=== PATIENT | male | born 1945 | race Caucasian/White ===

== ENCOUNTER 2020-01-07 09:33 | Inpatient (IN) | payer MEDICARE ==
[~2020-01-07] VITALS: Ht 170.2 cm; Wt 84.1 kg
--- NOTE | ~2020-01-07 | HEMODYNAMI ---
PATIENT:CHASTITY BOYER MEDICAL RECORD: [id number] : 43 [facility] [id number] ADMISSION DATE: 01/07/20 Generatedon:01/11/202012:41 Patient name: CHASTITY BOYER Patient #: [id number] SSN: DO B: 1945 Date of study: 01/11/2020 Page: Of Hemodynamic Procedure Report Patient Data Patient Demographics Procedure consent was obtained First Name: CHASTITY Gender: Male Last Name: ROSALIND : 1945 [facility] Initial: J Age: 74 year(s) Patient #: [id number] Race: Unknown Additional ID: [id number] Contact details Address: [address] [place] [address] State: [place] City: [place] Zip code: [address] Past Medical History Allergies: No known allergies Admission Admission Data Admission Date: 01/07/2020 Admission Time: 10:51 Room #: D.2116 Lab Results Lab Result Date: 01/11/2020 Lab Result Time: 0:00 Biochemistry Name Units Result Min Max BUN mg/dl 14 --(--*-)-- 7 18 Creatinine mg/dl 0.8 --(-*--)-- 0.6 1.3 eGFR ml/min 90 --(*---)-- 90 120 NONAFRICAN CBC Name Units Result Min Max Hematocrit % 42.6 --(*---)-- 42 54 Hemoglobin g/dl 13.8 --(*---)-- 13.5 17.5 Procedure Procedure Types Cath Procedure Diagnostic Procedure Cardioversion External Procedure Description Procedure Date Procedure Date: 01/11/2020 Procedure Start Time: 12:31 Procedure End Time: 12:39 Procedure Staff Name Function Jamarcus Duarte MD Performing Physician Sammie Ponce RT Monitor Melvi Castro RN Nurse Star Hess RN Adobe Flex Developer Procedure Data Cath Procedure Fluoroscopy Diagnostic fluoroscopy Total fluoroscopy Time: 0 time: 0 min min Diagnostic fluoroscopy Total fluoroscopy dose: 0 dose: 0 mGy mGy Estimated blood loss: 0 ml Procedure Complications No complications Procedure Medications Medication Administration Route Dosage 0.9% NaCl I.V. 100 ml/hr Oxygen etCO2 Nasal cannula 2 l/min Refer to Anesthesia Notes for Sedation Medications Hemodynamics Rest HGB: 13.8 (g/dl) Heart Rate: 81 (bpm) Snapshots Pre Cath Intra NCS Post Cath Vital Signs Time Heart Resp SPO2 etCO2 NIBP (mmHg) Rhythm Pain Sedation Rate (ipm) (%) (mmHg) Status Level (bpm) 12:27:59 72 22 97 22.5 179/95(119) A-Fib 0 (11) 10(A) , No pain 12:31:05 83 13 97 24.7 117/72(84) A-Fib 0 (11) 5(A) , No pain 12:33:24 71 19 94 21.7 106/66(83) NSR 0 (11) 5(A) , No pain 12:36:33 72 16 94 18.7 102/65(83) NSR 0 (11) 5(A) , No pain 12:38:58 68 26 94 24.8 109/68(86) NSR 0 (11) 10(A) , No pain Medications Time Medication Route Dose Verified Delivered Reason Notes Effective ness by by 12:27:07 0.9% NaCl I.V. 100 Jamarcus Melvi used for ml/hr Gerald Castro major case detective 12:27:14 Oxygen etCO2 2 Jamarcus Melvi used for Nasal l/min Gerald Castro procedure cannula RN 12:27:21 Refer to Jamarcus Jamarcus for Anesthesia Gerald Duarte MD sedation Notes for Sedation Medications Procedure Log Time Note 12:04:18 Informed consent obtained and on chart 12:04:42 Procedure Status Cardioversion. 12:04:44 Star Hess RN sent for patient. Start room use. 12:04:44 Time tracking: Regular hours (M-F 7:00 - 5:00) 12:04:48 Plan of Care:Hemodynamics will remain stable., Cardiac rhythm will remain stable., Comfort level will be maintained., Respiratory function will remain adequate., Patient/ family verbilizes understanding of procedure., Procedure tolerated without complication., Recovers from procedure without complications.. 12:04:51 H&P Date Dictated: 01/11/2020 ER History on chart.. 12:04:58 Patient allergic to No known allergies 12:21:40 Patient arrived from [facility] to CCL 3. Patient remains on bed/stretcher for procedure. 12::42 Warm blankets applied, and dari hugger turned on for patient comfort. 12::42 Correct patient and procedure confirmed by team. 12::42 ECG and BP/O2 sat monitors applied to patient. 12::44 Pre-procedure instructions explained to patient. 12::44 Pre-op teaching completed and patient verbalized understanding. 12::45 Family unavailable. 12::46 Patient NPO since Midnight. 12:21:48 Is the patient allergic to Iodine/contrast media? No. 12::49 Is patient on blood thinner?Yes 12::52 ACC The patient was administered the following blood thiners within the last 24 hours: Eliquis 12:21:54 Patient diabetic? No. 12:21:56 Previous problem with sedation/anesthesia? No ? 12:22:01 Snore? Yes 12:22:02 Sleep apnea? No 12:22:05 Deviated septum? No 12:22:06 Opens mouth fully? Yes 12:22:07 Sticks out tongue? Yes 12:22:12 Airway obstruction? Yes COPD 12:22:18 Dentures? No ? 12:22:24 Patient pain scale 0/10 ?. 12:22:31 IV patent on arrival in left hand with 0.9% NaCl at [facility]. 12:24:36 Lab Result : BUN 14 mg/dl 12:24:36 Lab Result : Creatinine 0.8 mg/dl 12:24:36 Lab Result : eGFR NONAFRICAN 90 ml/min 12:24:36 Lab Result : Hemoglobin 13.8 g/dl 12:24:36 Lab Result : Hematocrit 42.6 % 12:24:49 Lab results completed and on chart. 12::56 Alarms reviewed by R. N. 12::57 Sharps counted by scrub and verified by R.N. 12::54 Vital chart was started 12:26:55 Baseline sample Acquired. 12:27:03 Rhythm: atrial fibrillation 12:27:04 Full Disclosure recording started 12:27:07 0.9% NaCl 100 ml/hr I.V. was administered by Melvi Matthew RN; used for procedure; Verbal order read back and verified. :14 Oxygen 2 l/min etCO2 Nasal cannula was administered by Melvi Castro RN; used for procedure; Verbal order read back and verified. : Jamarcus Duarte MD present and monitoring patient for TIVA. 12:: Refer to Anesthesia Notes for Sedation Medications was administered by Jamarcus Duarte MD; for sedation; Verbal order read back and verified. : --------ALL STOP TIME OUT------ : Final Timeout: patient, procedure, and site verified with staff and physician. All members of the team are in agreement. 12::19 Fire Safety Assessment: A--An alcohol-based skin anteseptic being used preoperatively., B--The operative or invasive procedure is being performed above the xiphoid process or in the oropharynx., C--Open oxygen or nitrous oxide is being used. 12::23 Physical assessment completed. ASA score P 3 - A patient with severe systemic disease as per Jamarcus Duarte MD. 12::25 1) 90+ Normal kidney functon but urine findings or structural abnormalities or genetic trait point to kidney disease. 12:29:28 Maximum allowable contrast dose (3.7 X eGFR X 0.75)250 ml. 12::32 Sedation plan: IV Moderate Sedation Medication:Versed, Fentanyl 12:29:54 Quick Combo opened to sterile field. 12:31:29 Procedure started. 12:31:39 ------Cardioversion------ 12::40 Quick combo pads placed on patients chest and back. 12::45 Defibrillator synced and charged to 200 Joules. 12:31:51 Shock delivered. 12:31:52 Patient cardioverted to sinus rhythm . 12:32:26 Procedure ended.(Physican Out) 12:33:59 Fluoroscopy time 00.00 minutes. 12:34:00 Flurop Dose total: 0 12:34:00 Fluoroscopy dose: 0 mGy 12:34:02 Dose Area Product 0 mGy/cm. 12:34:14 Post-procedure physical assessment completed. ASA score P 3 - A patient with severe systemic disease as per Jamarcus Duarte MD. :17 Post procedure rhythm: sinus rhythm 12:34:50 Estimated blood loss: 0 ml 12:34:52 Post procedure instruction explained to patient.Patient verbalizes understanding. 12:34:52 Patient needs reinforcement of post procedure teaching. 12:35:19 Procedure and supply charges have been captured, reviewed, submitted and are correct. 12:35:22 Procedure Complication : No complications 12:35:27 Operative report dictated upon procedure completion. 12:35:27 See physician's report for complete and final results. 12:35:29 Report given to [facility]. 12:35:33 Patient transfered to [facility] with Bed. 12:39:16 Vital chart was stopped 12:39:19 Procedure ended. 12:39:19 Full Disclosure recording stopped 12:39:28 End room use (Document Last) 12:40:06 End room use (Document Last) 12:40:47 End room use (Document Last) Device Usage Item Manufacture Quantity Catalog Hospital Part Current Minimal Lot# / Name Number Charge Number Stock Stock Seri al# Code [id number] Combo Signature Audit Latta Stage Time Signature Unsigned Intra-Procedure 01/11/2020 Sammie Ponce 12:40:06 PM RT(R) Intra-Procedure 01/11/2020 Melvi Castro 12:40:47 PM RN Intra-Procedure 01/11/2020 Jamarcus Duarte MD 12:41:[address] [facility] [address] [place] [address]
[~2020-01-07 09:33] MED LIST: ANORO ELLIPTA1 EACH INH; BETAPACE 120 M120 MG PO; CYCLOBENZAPRINE10 MG PO; ELIQUIS5 MG PO; HCTZ25 MG PO; HYDROCODON-ACE1 EA10 PO; LISINOPRIL10 MG PO; MUCINEX DM ER1 EAC1 PO; Nicoderm [PBKC] TRANSDERM; OMNICEF300 MG PO; PREDNISONE10 MG PO; PROMACTA75 MG PO; REQUIP3 MG PO; TESSALON PERLE100 MG PO; TIAZAC/CARDIZE240 M1 PO; TIAZAC/CARDIZEM CD PO
[2020-01-07] MEDS ORDERED: BETAPACE 80 MG80 MG PO (09:41)
[2020-01-07] MEDS ORDERED: CARDIZEM CD240 MG PO (09:42)
[2020-01-07] MEDS ORDERED: PROMACTA75 MG PO (09:42)
[2020-01-07] MEDS ORDERED: HYDROCODON-ACE1 EA10 PO (09:43)
--- NOTE | 2020-01-07 09:49 | NUR ---
FOOD TRAY ORDERED FOR PATIENT AT THIS TIME.
[2020-01-07 09:58] LABS: BASOPHILS 0.3 % (0-2); EOSINOPHILS 2.8 % (0-7); HEMATOCRIT 42.7 % (42.0-54.0); HEMOGLOBIN 14.3 g/dL (13.5-17.5); IMMATURE GRANULOCYTES 0.2 % (0-5); LYMPHOCYTES 7.1 % (15-50); MCH 30.4 pg (26.0-34.0); MCHC 33.5 g/dL (31.0-37.0); MCV 90.7 fL (80.0-100.0); MEAN PLATELET VOLUME 13.6 fL (7.4-10.4); MONOCYTES 4.7 % (2-11); NEUTROPHILS 84.9 % (40-80); RBC 4.71 10x6/uL (4.20-6.10); RDW 13.9 % (11.5-14.5); WBC 9.1 10x3/uL (4.8-10.8)
[2020-01-07 10:06] LABS: INR 1.16 (0.85-1.17); PROTIME 14.7 SECONDS (11.6-15.0)
[2020-01-07 10:07] LABS: APTT 44.5 SECONDS (22.8-39.4); CALC OSMOLALITY 281 mosm/kg (275-300); CHLORIDE - SERUM 104 mmol/L (98-107); CREATININE - SERUM 0.8 mg/dL (0.6-1.3); GLUCOSE 142 mg/dL (74-106); POTASSIUM - SERUM 3.7 mmol/L (3.5-5.1); SODIUM 139 mmol/L (136-145); UREA NITROGEN 19 mg/dL (7-18); eGFR NON AFRICAN AMERICAN > 90 mL/min (90-120)
[2020-01-07 10:09] LABS: PLATELET COUNT 68 10x3/uL (130-400)
[2020-01-07 10:15] LABS: BILIRUBIN NEGATIVE (NEGATIVE); GLUCOSE NEGATIVE (NEGATIVE); KETONE NEGATIVE (NEGATIVE); NITRITE NEGATIVE (NEGATIVE); SPECIFIC GRAVITY 1.025 (1.005-1.020); UROBILINOGEN NORMAL (NORMAL)
[2020-01-07 10:17] LABS: BACTERIA NONE SEEN /hpf (NEGATIVE); EPITHELIAL CELLS NSEEN /hpf (0-5); RED CELLS - URINE 0-5 /hpf (0-5); WHITE CELLS - URINE NSEEN /hpf (NEGATIVE)
[2020-01-07 10:21] LABS: UDS - AMPHET NEGATIVE QUAL (NEGATIVE); UDS - BARB NEGATIVE QUAL (NEGATIVE); UDS - BENZO NEGATIVE QUAL (NEGATIVE); UDS - COCAINE NEGATIVE QUAL (NEGATIVE); UDS - OPIATE POSITIVE QUAL (NEGATIVE); UDS - PCP NEGATIVE QUAL (NEGATIVE); UDS - THC NEGATIVE QUAL (NEGATIVE)
[2020-01-07 10:24] LABS: ALBUMIN 3.7 g/dL (3.4-5.0); ALKALINE PHOSPHATASE 103 U/L (30-120); ALT (SGPT) 26 U/L (10-68); BILIRUBIN - TOTAL 0.78 mg/dL (0.2-1.3); CKMB 3.7 U/L (0.0-3.6); CREATINE KINASE 61 UL (21-232); PROTEIN - SERUM 7.2 g/dL (6.4-8.2); THYROID STIMULATING HORMONE 0.41 uIU/mL (0.36-3.74)
[2020-01-07 10:27] LABS: TROPONIN-I < 0.017 ng/mL (0.000-0.060)
[2020-01-07 10:41] LABS: PLATELET ESTIMATE DECREASED
[2020-01-07 10:42] VITALS: BP 133/88
--- NOTE | 2020-01-07 10:43 | NUR ---
PT IS POOR HISTORIAN. DOES NOT KNOW MEDICAL HISTORY.
--- NOTE | 2020-01-07 12:53 | NUR ---
TRANSFER FROM ER BY W/C. NICOLEINTED TO ROOM. CALL LIGHT IN REACH. WILL CONT. PLAN OF CARE.
[2020-01-07 13:28] VITALS: BP 107/72; BMI 31.7
[2020-01-07 13:33] VITALS: BP 115/73
--- NOTE | 2020-01-07 19:30 | NUR ---
REPORT RECIEVED AND INITIAL ROUNDS COMPLETED. PT RESTING IN BED. NO DISTRESS.
[2020-01-07 20:00] VITALS: BP 107/60
--- NOTE | 2020-01-07 22:52 | NUR ---
BEDTIME MEDS GIVEN. IV CARDIZEM INFUSING AT 5ML/HR AND NS @ 75ML/HR INFUSING. PT VOIDING TO URINAL. 02 @ 2L/NC IN PLACE.
[2020-01-08] VITALS: BP 142/92
[2020-01-08 04:00] VITALS: BP 135/77
[2020-01-08 05:58] LABS: BASOPHILS 0.2 % (0-2); EOSINOPHILS 4.4 % (0-7); HEMATOCRIT 41.3 % (42.0-54.0); HEMOGLOBIN 13.5 g/dL (13.5-17.5); IMMATURE GRANULOCYTES 0.1 % (0-5); LYMPHOCYTES 11.1 % (15-50); MCH 30.3 pg (26.0-34.0); MCHC 32.7 g/dL (31.0-37.0); MCV 92.6 fL (80.0-100.0); MEAN PLATELET VOLUME 12.9 fL (7.4-10.4); MONOCYTES 6.8 % (2-11); NEUTROPHILS 77.4 % (40-80); PLATELET COUNT 72 10x3/uL (130-400); RBC 4.46 10x6/uL (4.20-6.10); RDW 14.2 % (11.5-14.5); WBC 8.7 10x3/uL (4.8-10.8)
[2020-01-08 06:30] LABS: ALBUMIN 3.5 g/dL (3.4-5.0); ALKALINE PHOSPHATASE 92 U/L (30-120); ALT (SGPT) 23 U/L (10-68); BILIRUBIN - TOTAL 0.68 mg/dL (0.2-1.3); CALC OSMOLALITY 283 mosm/kg (275-300); CALCIUM 8.4 mg/dL (8.5-10.1); CARBON DIOXIDE 25.9 mmol/L (21.0-32.0); CHLORIDE - SERUM 103 mmol/L (98-107); CREATININE - SERUM 0.7 mg/dL (0.6-1.3); GLUCOSE 111 mg/dL (74-106); POTASSIUM - SERUM 3.8 mmol/L (3.5-5.1); PROTEIN - SERUM 6.5 g/dL (6.4-8.2); SODIUM 140 mmol/L (136-145); eGFR NON AFRICAN AMERICAN > 90 mL/min (90-120)
[2020-01-08 06:31] LABS: UREA NITROGEN 24 mg/dL (7-18)
[2020-01-08 10:04] VITALS: BP 147/90
[2020-01-08 13:35] VITALS: Ht 170.2 cm; Wt 84.1 kg
[2020-01-08 13:48] VITALS: BP 103/63
--- NOTE | 2020-01-08 15:31 | MORECARE ---
CASE MANAGEMENT DISCHARGE SUMMARY PATIENT: CHASTITY BOYER UNIT: [id number] ADM DATE: 01/07/20 AGE: 74 : 44 SEX: M ROOM/BED: D.[facility] AUTHOR: JOEL TANNER PHYSICIAN: REFERRING PHYSICIAN: DIVINA RAE MD DATE OF SERVICE: 01/08/20 Discharge Plan Patient Name: CHASTITY BOYER [facility] [facility] 1945 Planned Disposition: Anticipated Discharge Date: Discharge Date: Expected LOS: Initial Reviewer: [email or web address] Initial Review Date: 01/07/2020 Generated: 01/08/20 4:31 pm Comments DCP- Discharge Planning Updated by [email or web address]: Vonda Torres on 01/08/20 2:[address] Patient Name: CHASTITY BOYER Admission Status: ER Accout number: [id number] Admission Date: 01-07-2020 : 1945 Admission Diagnosis: Attending: DIVINA RAE Current LOS: 1 Anticipated DC Date: Planned Disposition: Primary Insurance: [employer] CHOICE PPO MCR ADVANT Discharge Planning Comments: CM LEFT CONTACT INFORMATION WITH PATIENT FOR HIS . HE STATES SHE HAS QUESTIONS FOR CM. I GAVE HIM MY NUMBER AND TOMS. Policyholder Information Clerk: Vonda Torres Patient Name: CHASTITY BOYER Page 75041 at 1531 All edits/amendments must be made on the electronic document DICTATION DATE: 01/08/20 1531 PLUCK SEPARATOR: HEIDY 01/08/20 1531 RPT#: [id number] DC DATE: STATUS: ADM IN [facility] [address] [place] [address] END OF REPORT
--- NOTE | 2020-01-08 15:47 | MORECARE ---
CASE MANAGEMENT DISCHARGE SUMMARY PATIENT: CHASTITY BOYER UNIT: [id number] ADM DATE: 01/07/20 AGE: 74 : 44 SEX: M ROOM/BED: D.[facility]6 AUTHOR: JOEL TANNER PHYSICIAN: REFERRING PHYSICIAN: DIVINA RAE MD DATE OF SERVICE: 01/08/20 Discharge Plan Patient Name: CHASTITY BOYER [facility] [facility] 1945 Planned Disposition: Anticipated Discharge Date: Discharge Date: Expected LOS: Initial Reviewer: [email or web address] Initial Review Date: 01/07/2020 Generated: 01/08/20 4:46 pm Comments DCP- Discharge Planning Updated by [email or web address]: Vonda Torres on 01/08/20 2:[address] Patient Name: CHASTITY BOYER Admission Status: ER Accout number: [id number] Admission Date: 01-07-2020 : 1945 Admission Diagnosis: Attending: DIVINA RAE Current LOS: 1 Anticipated DC Date: Planned Disposition: Primary Insurance: [employer] CHOICE PPO MCR ADVANT Discharge Planning Comments: CM LEFT CONTACT INFORMATION WITH PATIENT FOR HIS . HE STATES SHE HAS QUESTIONS FOR CM. I GAVE HIM MY NUMBER AND TOMS. Dairy Specialist: Vonda Torres Appended by Vonda Torres on 01/08/2020 15:43 CDT: 'S NAME IS JEFF BOYER, PHONE NUMBER [phone], WE CAN CALL HER WITH ANY QUESTIONS. Last DP export: 01/08/20 2:31 p Patient Name: CHASTITY BOYER Page 92301 at 1547 All edits/amendments must be made on the electronic document DICTATION DATE: 01/08/20 154 ICER MACHINE OPERATOR: HEIDY 01/08/20 1546 RPT#: [id number] DC DATE: STATUS: ADM IN [facility] [address] [place] [address] END OF REPORT
[2020-01-08 17:38] VITALS: BP 114/70
--- NOTE | 2020-01-08 19:30 | NUR ---
REPORT RECIEVED AND INITIAL ROUNDS COMPLETED. PT SITTING ON SIDE OF BED. BED ALARM IN PLACE. O2 @ 2L/NC WITH SHALLOW/MILD SOB. RT NOW IN ROOM DOING BREATHING TREATMENT. IVF NS @ 75ML/HR INFUSING TO LFA. PT ALERT/FREQUENT COUGHING SPELLS. ENCOURAGED FLUIDS. CALL LIGHT IN REACH.
[2020-01-08 20:00] VITALS: BP 143/82
--- NOTE | 2020-01-08 21:17 | NUR ---
BEDTIME MEDS GIVEN. SCHEDULED PAIN MED GIVEN. PT STILL SITTING ON SIDE OF BED. BED ALARM ACTIVE.
[2020-01-09] VITALS: BP 158/98
[2020-01-09 04:00] VITALS: BP 158/90
--- NOTE | 2020-01-09 04:25 | NUR ---
PT HAS BEEN UP ON SIDE OF BED ALL NIGHT. HE WANTS TO WALK IN THE HALLWAYS BUT HIS GAIT IS UNSTEADY AND HE CANNOT STAND STRAIGHT UP. SPOKE WITH PATIENT ABOUT PT EVALUATING HIS AMBULATION STATUS TO MAKE SURE HE IS SAFE FOR NURSES TO AMBULATE HIM AND HE IS IN AGREEMENT. IVF INFUSING. ENCOURAGED PT TO TRY AND LAY DOWN HE HAS NOT SLEPT FOR THE LAST 2 NIGHTS.
--- NOTE | 2020-01-09 07:15 | NUR ---
RECEIVED PT SITTING ON SIDE OF BED AAOX4 RESP UNLAABORED NAD NOTED
[2020-01-09 08:00] VITALS: BP 179/101
[2020-01-09 08:29] LABS: BASOPHILS 0.5 % (0-2); EOSINOPHILS 3.3 % (0-7); HEMATOCRIT 43.5 % (42.0-54.0); HEMOGLOBIN 14.5 g/dL (13.5-17.5); IMMATURE GRANULOCYTES 0.2 % (0-5); LYMPHOCYTES 8.7 % (15-50); MCH 30.2 pg (26.0-34.0); MCHC 33.3 g/dL (31.0-37.0); MEAN PLATELET VOLUME 13.3 fL (7.4-10.4); MONOCYTES 7.7 % (2-11); NEUTROPHILS 79.6 % (40-80); PLATELET COUNT 73 10x3/uL (130-400); RDW 13.9 % (11.5-14.5); WBC 8.6 10x3/uL (4.8-10.8)
[2020-01-09 09:00] LABS: MCV 90.6 fL (80.0-100.0)
[2020-01-09 09:02] LABS: CALC OSMOLALITY 276 mosm/kg (275-300); CALCIUM 8.8 mg/dL (8.5-10.1); CARBON DIOXIDE 26.5 mmol/L (21.0-32.0); CHLORIDE - SERUM 101 mmol/L (98-107); CREATININE - SERUM 0.7 mg/dL (0.6-1.3); GLUCOSE 130 mg/dL (74-106); POTASSIUM - SERUM 3.5 mmol/L (3.5-5.1); SODIUM 137 mmol/L (136-145); eGFR NON AFRICAN AMERICAN > 90 mL/min (90-120)
[2020-01-09 09:06] LABS: UREA NITROGEN 14 mg/dL (7-18)
[2020-01-09 11:00] VITALS: BP 138/81
[2020-01-09 20:00] VITALS: BP 130/71
[2020-01-10 01:22] VITALS: BP 129/78
--- NOTE | 2020-01-10 04:57 | NUR ---
PATIENT LEFT THE FLOOR WITHOUT NOTIFYING NURSE. SECURITY WAS CALLED BUT BY THAT TIME ER CALLED TO INFORM USE HE WAS DOWN THERE JUST CHATTING WITH A NURSE. GOT PATIENT BACK TO ROOM VIA W/C, NEHEMIAH ALARM ON, TELEMETRY APPLIED. PATIENT HAD PULLED OUT PIV, CATH TIP INTACT. NEW PIV TO RT WRIST 22G X1 ATTEMPT. GOOD BLOOD RETURN AND FLUSHED WITH EASE.
--- NOTE | 2020-01-10 05:39 | NUR ---
I have reviewed this patient and I concur with the Shift Assessment completed by the Licensed Practical Nurse today this shift.
--- NOTE | 2020-01-10 05:46 | NUR ---
PATIENT C/O OF STERNAL PAIN, INSISTS IT'S NOT CHEST PAIN. ADMINISTERED SCHEDULED NORCO EARLY.
[2020-01-10 05:55] VITALS: BP 134/84
[2020-01-10 06:22] LABS: BASOPHILS 0.5 % (0-2); EOSINOPHILS 3.1 % (0-7); HEMATOCRIT 42.6 % (42.0-54.0); HEMOGLOBIN 13.8 g/dL (13.5-17.5); IMMATURE GRANULOCYTES 0.1 % (0-5); LYMPHOCYTES 11.3 % (15-50); MCH 29.8 pg (26.0-34.0); MCHC 32.4 g/dL (31.0-37.0); MEAN PLATELET VOLUME 12.7 fL (7.4-10.4); MONOCYTES 7.9 % (2-11); NEUTROPHILS 77.1 % (40-80); PLATELET COUNT 75 10x3/uL (130-400); RBC 4.63 10x6/uL (4.20-6.10); RDW 13.9 % (11.5-14.5); WBC 7.4 10x3/uL (4.8-10.8)
[2020-01-10 06:29] LABS: CALC OSMOLALITY 275 mosm/kg (275-300); CALCIUM 9.1 mg/dL (8.5-10.1); CARBON DIOXIDE 26.5 mmol/L (21.0-32.0); CHLORIDE - SERUM 100 mmol/L (98-107); CREATININE - SERUM 0.8 mg/dL (0.6-1.3); GLUCOSE 119 mg/dL (74-106); POTASSIUM - SERUM 3.5 mmol/L (3.5-5.1); SODIUM 137 mmol/L (136-145); UREA NITROGEN 14 mg/dL (7-18); eGFR NON AFRICAN AMERICAN > 90 mL/min (90-120)
[2020-01-10 09:08] LABS: PLATELET ESTIMATE DECREASED
[2020-01-10 09:41] VITALS: BP 148/94
--- NOTE | 2020-01-10 10:13 | MORECARE ---
CASE MANAGEMENT DISCHARGE SUMMARY PATIENT: CHASTITY BOYER UNIT: [id number] ADM DATE: 01/07/20 AGE: 74 : 44 SEX: M ROOM/BED: D.0276 AUTHOR: FLORES,DOC PHYSICIAN: REFERRING PHYSICIAN: DIVINA RAE MD DATE OF SERVICE: 01/10/20 Discharge Plan Patient Name: CHASTITY BOYER [facility]:[place] : 1945 Planned Disposition: Home Anticipated Discharge Date: Discharge Date: Expected LOS: Initial Reviewer: [email or web address] Initial Review Date: 01/07/2020 Generated: 01/10/20 11:13 am DCP- Discharge Planning Updated by [email or web address]: Vonda Torres on 01/08/20 2:[address] Patient Name: CHASTITY BOYER Admission Status: ER Accout number: [id number] Admission Date: 01-07-2020 : 1945 Admission Diagnosis: Attending: DIVINA RAE Current LOS: 1 Anticipated DC Date: Planned Disposition: Primary Insurance: [employer] CHOICE PPO MCR ADVANT Discharge Planning Comments: CM LEFT CONTACT INFORMATION WITH PATIENT FOR HIS . HE STATES SHE HAS QUESTIONS FOR CM. I GAVE HIM MY NUMBER AND TOMS. Animal Pathology Teacher: Vonda Torres Appended by Vonda Torres on 01/08/2020 15:43 CDT: 'S NAME IS JEFF BOYER, PHONE NUMBER [phone], WE CAN CALL HER WITH ANY QUESTIONS. DCPIA - Discharge Planning Initial Assessment Updated by [email or web address]: Vern Johnston on 01/10/20 10:12 am * Is the patient Alert and Oriented? Yes * How many steps to enter\exit or inside your home? * PCP DR. RESTREPO AT [facility] * Pharmacy [facility] IN [place] * Preadmission Environment Home with Family * ADLs Independent * Equipment Cane * Other Equipment NO MEDICAL EQUIPMENT PROVIDER PREFERENCE * List name and contact numbers for known caregivers / representatives who currently or will assist patient after discharge: JEFF POWERS, * Verbal permission to speak to the caregivers and representatives has been obtained from the patient. Yes * Community resources currently utilized None * Please name any agencies selected above. NONE * Additional services required to return to the preadmission environment? No * Can the patient safely return to the preadmission environment? Yes * Has this patient been hospitalized within the prior 30 days at any hospital? No Coverage Notice Reviewer: [id number] Ras Johnston Notice Issued Date-Time: 01/09/2020 16:20 Notice Type: IM Discharge Notice Notice Delivered To: Patient Relationship to Patient: Executive Vp Name: Delivery Method: HAND - Hand Delivered [place] Days: Prior Verbal Notification: Recipient Understood Notice: Yes Recipient Signature: Yes Med Rec Note Co-signed by Attending: Coverage Notice Comment: Last DP export: 01/08/20 2:47 p Patient Name: CHASTITY BOYER Page 92491 at 1013 All edits/amendments must be made on the electronic document DICTATION DATE: 01/10/20 1013 FOLDING MACHINE SETTER: HEIDY 01/10/20 1013 RPT#: [id number] DC DATE: STATUS: ADM IN [facility] [address] [place] [address] END OF REPORT
--- NOTE | 2020-01-10 10:25 | MORECARE ---
CASE MANAGEMENT DISCHARGE SUMMARY PATIENT: CHASTITY BOYER UNIT: [id number] ADM DATE: 01/07/20 AGE: 74 : 44 SEX: M ROOM/BED: D.8418 AUTHOR: FLORES,DOC PHYSICIAN: REFERRING PHYSICIAN: DIVINA RAE MD DATE OF SERVICE: 01/10/20 Discharge Plan Patient Name: CHASTITY BOYER Facility: [facility]:[place] : 1945 Planned Disposition: Home Anticipated Discharge Date: Discharge Date: Expected LOS: Initial Reviewer: [email or web address] Initial Review Date: 01/07/2020 Generated: 01/10/20 11:24 am Comments DCP- Discharge Planning Updated by [email or web address]: Vern Johnston on 01/10/20 9:[address] Patient Name: CHASTITY BOYER Admission Status: ER Accout number: [id number] Admission Date: 01-07-2020 : 1945 Admission Diagnosis: Attending: DIVINA RAE Current LOS: 3 Anticipated DC Date: Planned Disposition: Home Primary Insurance: HUMANA CHOICE PPO MCR ADVANT Discharge Planning Comments: LATE ENTRY FROM 01-09-20: CM RECEIVED CALL FROM JEFF POWERS, , WHO ASKED CM FOR MEDICAL UPDATE ON PT. CM REVIEWED NOTES, SPOUSE IS LISTED EMERGENCY CONTACT AND PT HAS GIVEN PERMISSION TO SPEAK TO SPOUSE. CM INFORMED PT'S SPOUSE THAT CM IS NOT A NURSE AND OFFERED TO DIRECT HER TO THE NURSE. PT'S SPOUSE BECAME VERY UPSET AND STATED THAT SHE HAS SPOKEN TO A NURSE WHO WAS NO HELP AT ALL. CM EXPLAINED THAT RADHA IS PT'S NURSE AND CM FINDS IT HARD TO BELIEVE THAT RADHA WAS NO HELP AND OFFERED TO CHECK INTO THIS; PT'S SPOUSE STATES THAT CM IS OF NO HELP EITHER AND HUNG UP THE PHONE. A SHORT TIME LATER, CM SPOKE TO BEDSIDE NURSE RADHA AND OFFERED SPOUSE'S CONTACT NUMBER, RADHA INFORMED CM THAT SHE HAS SPOKEN TO PT'S SPOUSE A SHORT TIME AGO AND ANSWERED ALL QUESTIONS. CM MET WITH PT IN ROOM TO DISCUSS DISCHARGE PLANNING AND NEEDS. PT REPORTS LIVING AT HOME INDEPENDENTLY WITH HIS . PT HAS A CANE WITH NO MEDICAL EQUIPMENT PROVIDER PREFERENCE AND NO OUTSIDE SERVICES ASSISTING IN THE HOME. CM DISCUSSED AVAILABILITY OF HOME HEALTH, REHAB SERVICES AND MEDICAL EQUIPMENT. PT DENIES DISCHARGE NEEDS, REPORTS HIS WANTS HIM TO HAVE A WALKER WITH SEAT AND 4 WHEELS FOR DISCHARGE HOME AND WILL PICK HIM UP FOR DISCHARGE HOME. IMPORTANT MESSAGE FROM MEDICARE PROVIDED AND EXPLAINED. CM CALLED JEFF POWERS, , APOLOGIZED FOR CM NOT BEING ABLE TO ASSIST HER SHE REQUESTED EARLIER. CM OFFERED TO ASSIST WITH ARRANGING ROLLATOR WALKER. PT'S SPOUSE REPORTS SHE DOES NOT WANT IT TO BE ARRANGED, SHE WOULD LIKE A WRITTEN PRESCRITION AND WILL PICK ONE OUT HERSELF. PT'S SPOUSE INFORMED CM THAT PT'S PLAN TO IS RETURN HOME AT DISCHARGE. PT'S SPOUSE WANTS A WRITTEN ORDER OR PRESCRIPTION FOR A ROLLATOR WALKER, SHE WILL PICK OUT AND PURCHASE THIS HERSELF. PT AND SPOUSE DENY FURTHER DISCHARGE NEEDS. FAMILY TO TRANSPORT HOME AT DISCHARGE. CM TO FOLLOW AND ASSIST IF NEEDED. Um Rn: Vern Johnston DCP- Discharge Planning Updated by [id number]: Vonda Torres on 01/08/20 2:[address] Patient Name: CHASTITY BOYER Admission Status: ER Accout number: [id number] Admission Date: 01-07-2020 : 1945 Admission Diagnosis: Attending: DIVINA RAE Current LOS: 1 Anticipated DC Date: Planned Disposition: Primary Insurance: HUMANA CHOICE O [facility] Discharge Planning Comments: CM LEFT CONTACT INFORMATION WITH PATIENT FOR HIS . HE STATES SHE HAS QUESTIONS FOR CM. I GAVE HIM MY NUMBER AND TOMS. Um Rn: Vonda Torres Appended by Vonda Torres on 01/08/2020 15:43 CDT: 'S NAME IS JEFF BOYER, PHONE NUMBER [phone], WE CAN CALL HER WITH ANY QUESTIONS. DCPIA - Discharge Planning Initial Assessment Updated by [email or web address]: Vern Johnston on 01/10/20 10:12 am * Is the patient Alert and Oriented? Yes * How many steps to enter\exit or inside your home? * PCP DR. RESTREPO AT [facility] * Pharmacy [facility] IN [place] * Preadmission Environment Home with Family * ADLs Independent * Equipment Cane * Other Equipment NO MEDICAL EQUIPMENT PROVIDER PREFERENCE * List name and contact numbers for known caregivers / representatives who currently or will assist patient after discharge: JEFF POWERS, * Verbal permission to speak to the caregivers and representatives has been obtained from the patient. Yes * Community resources currently utilized None * Please name any agencies selected above. NONE * Additional services required to return to the preadmission environment? No * Can the patient safely return to the preadmission environment? Yes * Has this patient been hospitalized within the prior 30 days at any hospital? No Coverage Notice Reviewer: [email or web address] Ras Johnston Notice Issued Date-Time: 01/09/2020 16:20 Notice Type: IM Discharge Notice Notice Delivered To: Patient Relationship to Patient: Quality Specialist Name: Delivery Method: HAND - Hand Delivered [place] Days: Prior Verbal Notification: Recipient Understood Notice: Yes Recipient Signature: Yes Med Rec Note Co-signed by Attending: Coverage Notice Comment: Last DP export: 01/10/20 9:13 a Patient Name: CHASTITY BOYER Page 63512 at 1025 All edits/amendments must be made on the electronic document DICTATION DATE: 01/10/20 1024 BURLESQUE DANCER: HEIDY 01/10/20 1024 RPT#: [id number] DC DATE: STATUS: ADM IN [facility] [address] [place] [address] END OF REPORT
--- NOTE | 2020-01-10 14:34 | NUR ---
CONSENTS SIGNED FOR CARDIOVERSION. WILL CONT. PLAN OF CARE.
--- NOTE | 2020-01-10 15:04 | CN ---
PATIENT NAME:CHASTITY BOYER MEDICAL RECORD: [id number] : [birth year] LOCATION:D. D.2116 ADMIT DATE: 01/07/20 ACCOUNT: [id number] CONSULTING PHYSICIAN: LOLIS BARR MD REFERRING PHYSICIAN: DIVINA REA MD DATE OF CONSULTATION: 01/09/2020 IDENTIFYING DATA: The patient is 74 years old and he is admitted to the hospital on a voluntary basis. CHIEF COMPLAINT: Hallucinations. HISTORY OF PRESENT ILLNESS: The patient currently is having active visual hallucinations. He recognizes that what he sees is not real yet it still disturbing. He tells me about a man he saw standing in the doorway of his room. He could sort of see through the man and the man went and talked to him. He has no history of substance abuse. In fact, he does not drink at all and he says he has never taken illicit drug. He has no history of mental illness. He is actually completely oriented. I have reviewed his medication and he is taking quite a large number of medications, 26 in total including a steroid and narcotics. ASSESSMENT: Delirium secondary to multiple factors. PLAN: At this time, I am going to treat the patient with a low dose of Trilafon to assist with thought disorganization and hallucinations. I do not think the patient has dementia or if one is present. It is not advanced and not the cause of the hallucinations. I do not think the patient has an underlying mental illness. Hopefully, as his condition improves and some of the medications are tapered or discontinued, he will also show a similar level of improvement. No psychiatric followup is necessary and there is no evidence of direct dangerousness in the sense that he is not psychotic, suicidal, or homicidal. TRANSINT:[id number] Voice Confirmation ID: [id number] DOCUMENT ID: [id number] LOLIS BARR MD at 1504 CC: [id number] DICTATION DATE: 01/09/20 183 TERMINAL CLERK: 01/10/20 0021 ADM IN [facility] [address] [place] [id number]
[2020-01-10 18:10] VITALS: BP 115/71
[2020-01-10 20:00] VITALS: BP 133/85
--- NOTE | 2020-01-10 21:44 | NUR ---
EVENING ROUNDS COMPLETED. AFVSS, AAOX3, NO S/S OF RT DISTRESS. ASSIST PT TO REST ROOM. TELEMETRY ON, UNCONT. A-FIB. NEHEMIAH ALARM ON CHAIR AND BED. PT DENIES ANY FURTHER NEEDS AT THIS TIME. WILL CTM.
[2020-01-11] VITALS: BP 151/83
[2020-01-11 05:31] VITALS: BP 141/78
[2020-01-11 06:06] LABS: CARBON DIOXIDE 28.6 mmol/L (21.0-32.0); CHLORIDE - SERUM 100 mmol/L (98-107); CREATININE - SERUM 0.8 mg/dL (0.6-1.3); GLUCOSE 120 mg/dL (74-106); POTASSIUM - SERUM 3.6 mmol/L (3.5-5.1); SODIUM 137 mmol/L (136-145); eGFR NON AFRICAN AMERICAN > 90 mL/min (90-120)
[2020-01-11 06:11] LABS: CALC OSMOLALITY 277 mosm/kg (275-300); CALCIUM 9.3 mg/dL (8.5-10.1); UREA NITROGEN 20 mg/dL (7-18)
[2020-01-11 07:39] LABS: BASOPHILS 0.6 % (0-2); EOSINOPHILS 3.5 % (0-7); HEMATOCRIT 44.6 % (42.0-54.0); HEMOGLOBIN 14.8 g/dL (13.5-17.5); IMMATURE GRANULOCYTES 0.1 % (0-5); LYMPHOCYTES 11.3 % (15-50); MCH 30.6 pg (26.0-34.0); MCHC 33.2 g/dL (31.0-37.0); MCV 92.3 fL (80.0-100.0); MEAN PLATELET VOLUME 11.7 fL (7.4-10.4); MONOCYTES 8.3 % (2-11); NEUTROPHILS 76.2 % (40-80); PLATELET COUNT 89 10x3/uL (130-400); RBC 4.83 10x6/uL (4.20-6.10); RDW 13.8 % (11.5-14.5)
[2020-01-11 07:59] VITALS: BP 147/84
[2020-01-11 11:42] VITALS: BP 113/70
--- NOTE | 2020-01-11 12:21 | NUR ---
IV RESTARTED TO LEFT FA WITH 22 GAUGE CATH X 1 STICK AND FLUSED WITH NS. LINE IS PATENT. LEAVING FOR MILK TESTER BY BED. PRE-OPS TO BE GIVEN BY ANESTHESIA.
--- NOTE | 2020-01-11 12:57 | NUR ---
BACK FROM [facility] ACCOUNT EXECUTIVE. TELEMETRY SR 73. WILL CONT. PLAN OF CARE.
[2020-01-11 15:38] VITALS: BP 105/61
--- NOTE | 2020-01-11 20:03 | NUR ---
EVENING ROUNDS COMPLETED. AFVSS, AAOX3, NO S/S OF DISTRESS. PT STANDING UP WHILE EATING DINNER, STATES HE FEELS COMFORTABLE EATING WHILE ON HIS FEET. NEHEMIAH ALARM ON IN CHAIR AND BED. PT KEEPS PULLING OUT HIS TELEMETRY AND IV TUBING. PT DENIES ANY FURTHER NEEDS AT THIS TIME. WILL CPOC. CL WITHIN REACH.
[2020-01-11 20:32] VITALS: BP 104/58
[2020-01-12] VITALS: BP 99/60
[2020-01-12 04:38] LABS: BASOPHILS 0.4 % (0-2); EOSINOPHILS 3.7 % (0-7); HEMATOCRIT 43.4 % (42.0-54.0); HEMOGLOBIN 14.1 g/dL (13.5-17.5); IMMATURE GRANULOCYTES 0.1 % (0-5); LYMPHOCYTES 14.7 % (15-50); MCH 30.2 pg (26.0-34.0); MCHC 32.5 g/dL (31.0-37.0); MCV 92.9 fL (80.0-100.0); MEAN PLATELET VOLUME 12.3 fL (7.4-10.4); MONOCYTES 8.8 % (2-11); NEUTROPHILS 72.3 % (40-80); PLATELET COUNT 103 10x3/uL (130-400); RBC 4.67 10x6/uL (4.20-6.10); WBC 7.8 10x3/uL (4.8-10.8)
[2020-01-12 04:46] LABS: ANION GAP 12.9 mmol/L (8-16); CALCIUM 9.3 mg/dL (8.5-10.1); CARBON DIOXIDE 28.1 mmol/L (21.0-32.0)
[2020-01-12 04:48] LABS: CREATININE - SERUM 1.1 mg/dL (0.6-1.3)
[2020-01-12 04:50] VITALS: BP 118/59
[2020-01-12 09:44] VITALS: BP 139/78
--- NOTE | 2020-01-12 15:45 | NUR ---
IV AND TELEMETRY DCD. DC PLANS GIVEN. UNDERSTANDING VOICED. WAITING ON FOR RIDE.
--- NOTE | 2020-01-12 16:07 | MORECARE ---
CASE MANAGEMENT DISCHARGE SUMMARY PATIENT: CHASTITY BOYER UNIT: [id number] ADM DATE: 01/07/20 AGE: 74 : 43 SEX: M ROOM/BED: D.7326 AUTHOR: FLORES,DOC PHYSICIAN: REFERRING PHYSICIAN: DIVINA RAE MD DATE OF SERVICE: 01/12/20 Discharge Plan Patient Name: CHASTITY BOYER Facility: [facility]:[place] : 1945 Planned Disposition: Home Anticipated Discharge Date: 01/12/20 Discharge Date: Expected LOS: 5 Initial Reviewer: [id number] Initial Review Date: 01/07/2020 Generated: 01/12/20 5:07 pm Comments DCP- Discharge Planning Updated by [email or web address]: Vern Johnston on 01/12/20 3:[address] Patient Name: CHASTITY BOYER Encounter No: [id number] : 1945 Primary Insurance: [employer] CHOICE PPO MCR ADVANT Anticipated DC Date: 01-12-2020 Planned Disposition: Home DCP follow-up note: CM MET WITH PT IN ROOM TO DISCUSS DISCHARGE NEEDS AND PLANNING. CM DISCUSSED AVAILABILITY OF HOME HEALTH, REHAB SERVICES AND MEDICAL EQUIPMENT. PT DENIES DISCHARGE NEEDS. SPOUSE TO TRANSPORT HOME AT DISCHARGE. IMPORTANT MESSAGE FROM MEDICARE PROVIDED AND EXPLAINED. INFORMATION MANAGEMENT OFFICER NURSE NOTIFIED. HARMAN Yousif DCP- Discharge Planning Updated by [id number]: Vern Johnston on 01/10/20 9:[address] Patient Name: CHASTITY BOYER Admission Status: ER Accout number: [id number] Admission Date: 01-07-2020 : 1945 Admission Diagnosis: Attending: DIVINA RAE Current LOS: 3 Anticipated DC Date: Planned Disposition: Home Primary Insurance: [employer] CHOICE PPO MCR ADVANT Discharge Planning Comments: LATE ENTRY FROM 01-09-20: CM RECEIVED CALL FROM JEFF POWERS, , WHO ASKED CM FOR MEDICAL UPDATE ON PT. CM REVIEWED NOTES, SPOUSE IS LISTED EMERGENCY CONTACT AND PT HAS GIVEN PERMISSION TO SPEAK TO SPOUSE. CM INFORMED PT'S SPOUSE THAT CM IS NOT A NURSE AND OFFERED TO DIRECT HER TO THE NURSE. PT'S SPOUSE BECAME VERY UPSET AND STATED THAT SHE HAS SPOKEN TO A NURSE WHO WAS NO HELP AT ALL. CM EXPLAINED THAT RADHA IS PT'S NURSE AND CM FINDS IT HARD TO BELIEVE THAT RADHA WAS NO HELP AND OFFERED TO CHECK INTO THIS; PT'S SPOUSE STATES THAT CM IS OF NO HELP EITHER AND HUNG UP THE PHONE. A SHORT TIME LATER, CM SPOKE TO BEDSIDE NURSE RADHA AND OFFERED SPOUSE'S CONTACT NUMBER, RADHA INFORMED CM THAT SHE HAS SPOKEN TO PT'S SPOUSE A SHORT TIME AGO AND ANSWERED ALL QUESTIONS. CM MET WITH PT IN ROOM TO DISCUSS DISCHARGE PLANNING AND NEEDS. PT REPORTS LIVING AT HOME INDEPENDENTLY WITH HIS . PT HAS A CANE WITH NO MEDICAL EQUIPMENT PROVIDER PREFERENCE AND NO OUTSIDE SERVICES ASSISTING IN THE HOME. CM DISCUSSED AVAILABILITY OF HOME HEALTH, REHAB SERVICES AND MEDICAL EQUIPMENT. PT DENIES DISCHARGE NEEDS, REPORTS HIS WANTS HIM TO HAVE A WALKER WITH SEAT AND 4 WHEELS FOR DISCHARGE HOME AND WILL PICK HIM UP FOR DISCHARGE HOME. IMPORTANT MESSAGE FROM MEDICARE PROVIDED AND EXPLAINED. CM CALLED JEFF POWERS, , APOLOGIZED FOR CM NOT BEING ABLE TO ASSIST HER SHE REQUESTED EARLIER. CM OFFERED TO ASSIST WITH ARRANGING ROLLATOR WALKER. PT'S SPOUSE REPORTS SHE DOES NOT WANT IT TO BE ARRANGED, SHE WOULD LIKE A WRITTEN PRESCRITION AND WILL PICK ONE OUT HERSELF. PT'S SPOUSE INFORMED CM THAT PT'S PLAN TO IS RETURN HOME AT DISCHARGE. PT'S SPOUSE WANTS A WRITTEN ORDER OR PRESCRIPTION FOR A ROLLATOR WALKER, SHE WILL PICK OUT AND PURCHASE THIS HERSELF. PT AND SPOUSE DENY FURTHER DISCHARGE NEEDS. FAMILY TO TRANSPORT HOME AT DISCHARGE. CM TO FOLLOW AND ASSIST IF NEEDED. Finishing Room Operator: Vern Johnston DCP- Discharge Planning Updated by [id number]: Vonda Torres on 01/08/20 2:[address] Patient Name: CHASTITY BOYER Admission Status: ER Accout number: [id number] Admission Date: 01-07-2020 : 1945 Admission Diagnosis: Attending: DIVINA RAE Current LOS: 1 Anticipated DC Date: Planned Disposition: Primary Insurance: [employer] CHOICE PPO MCR ADVANT Discharge Planning Comments: CM LEFT CONTACT INFORMATION WITH PATIENT FOR HIS . HE STATES SHE HAS QUESTIONS FOR CM. I GAVE HIM MY NUMBER AND TOMS. Finishing Room Operator: Vonda Torres Appended by Vonda Torres on 01/08/2020 15:43 CDT: 'S NAME IS JEFF BOYER, PHONE NUMBER [phone], WE CAN CALL HER WITH ANY QUESTIONS. DCPIA - Discharge Planning Initial Assessment Updated by KIMBER: Vern Johnston on 01/10/20 10:12 am * Is the patient Alert and Oriented? Yes * How many steps to enter\exit or inside your home? * PCP [facility] * Pharmacy [facility] IN [place] * Preadmission Environment Home with Family * ADLs Independent * Equipment Cane * Other Equipment NO MEDICAL EQUIPMENT PROVIDER PREFERENCE * List name and contact numbers for known caregivers / representatives who currently or will assist patient after discharge: JEFF POWERS, * Verbal permission to speak to the caregivers and representatives has been obtained from the patient. Yes * Community resources currently utilized None * Please name any agencies selected above. NONE * Additional services required to return to the preadmission environment? No * Can the patient safely return to the preadmission environment? Yes * Has this patient been hospitalized within the prior 30 days at any hospital? No Coverage Notice Reviewer: KIMBER Johnston Notice Issued Date-Time: 01/09/2020 16:20 Notice Type: IM Discharge Notice Notice Delivered To: Patient Relationship to Patient: Automotive Fleet Supervisor Name: Delivery Method: HAND - Hand Delivered [place] Days: Prior Verbal Notification: Recipient Understood Notice: Yes Recipient Signature: Yes Med Rec Note Co-signed by Attending: Coverage Notice Comment: Reviewer: KIMBER Johnston Notice Issued Date-Time: 01/12/2020 14:00 Notice Type: IM Discharge Notice Notice Delivered To: Patient Relationship to Patient: Automotive Fleet Supervisor Name: Delivery Method: HAND - Hand Delivered [place] Days: Prior Verbal Notification: Recipient Understood Notice: Yes Recipient Signature: Yes Med Rec Note Co-signed by Attending: Coverage Notice Comment: Last DP export: 01/10/20 9:25 a Patient Name: CHASTITY BOYER Page [id number] at 1607 All edits/amendments must be made on the electronic document DICTATION DATE: 01/12/201606 ANESTHESIOLOGIST ASSISTANT CERTIFIED: HEIDY 01/12/201606 RPT#: [id number] DC DATE: STATUS: ADM IN [facility] [address] [place] [address] END OF REPORT
--- NOTE | 2020-01-12 16:42 | NUR ---
ESCORTED TO CAR BY W/C.
== END 2020-01-12 16:42 | disposition home or self-care (01) | DRG 308 ==
LOC: D.ER 09:33 → D.M2 10:51
PROVIDERS: Emergency Medicine; Family Medicine; ADMIT Internal Medicine Nephrology; ATTEND Internal Medicine Nephrology
DX: I48.91 Unspecified atrial fibrillation (principal); J18.9 Pneumonia, unspecified organism; G93.41 Metabolic encephalopathy; N17.9 Acute kidney failure, unspecified; F05 Delirium due to known physiological condition; J44.0 Chronic obstructive pulmonary disease with (acute) lower respiratory infection; J44.1 Chronic obstructive pulmonary disease with (acute) exacerbation; D69.6 Thrombocytopenia, unspecified; I10 Essential (primary) hypertension

== ENCOUNTER 2020-12-23 00:27 | Emergency (ER) | payer MEDICARE ==
[~2020-12-23] VITALS: Ht 170.2 cm; Wt 85.5 kg
[~2020-12-23 00:27] MED LIST changes: +BETAPACE 80 MG80 MG PO; +CARDIZEM CD240 MG PO
[2020-12-23 00:41] VITALS: Ht 170.2 cm; Wt 85.5 kg
[2020-12-23] MEDS ORDERED: PREDNISONE20 MG PO (00:52)
[2020-12-23 01:26] LABS: BASOPHILS 0.4 % (0-2); EOSINOPHILS 2.6 % (0-7); HEMATOCRIT 38.4 % (42.0-54.0); HEMOGLOBIN 12.8 g/dL (13.5-17.5); IMMATURE GRANULOCYTES 0.1 % (0-5); LYMPHOCYTE ABS# 0.85 10x3/uL (1.32-3.57); LYMPHOCYTES 10.6 % (15-50); MCH 30.7 pg (26.0-34.0); MCHC 33.3 g/dL (31.0-37.0); MCV 92.1 fL (80.0-100.0); MEAN PLATELET VOLUME 12.5 fL (7.4-10.4); MONOCYTES 6.2 % (2-11); NEUTROPHIL ABS# 6.43 10x3/uL (1.78-5.38); NEUTROPHILS 80.1 % (40-80); RBC 4.17 10x6/uL (4.20-6.10); RDW 13.3 % (11.5-14.5)
[2020-12-23 01:29] LABS: PLATELET COUNT 63 10x3/uL (130-400)
[2020-12-23 01:34] LABS: APTT 32.2 SECONDS (22.8-39.4); CALC OSMOLALITY 276 mosm/kg (275-300); CALCIUM 8.7 mg/dL (8.5-10.1); CARBON DIOXIDE 25.9 mmol/L (21.0-32.0); CHLORIDE - SERUM 104 mmol/L (98-107); CREATININE - SERUM 0.7 mg/dL (0.6-1.3); GLUCOSE 114 mg/dL (74-106); INR 0.98 (0.85-1.17); POTASSIUM - SERUM 3.4 mmol/L (3.5-5.1); SODIUM 137 mmol/L (136-145); UREA NITROGEN 18 mg/dL (7-18); eGFR NON AFRICAN AMERICAN > 90 mL/min (90-120)
[2020-12-23 01:39] LABS: ALBUMIN 3.5 g/dL (3.4-5.0); ALKALINE PHOSPHATASE 89 U/L (30-120); ALT (SGPT) 29 U/L (10-68); PROTEIN - SERUM 6.9 g/dL (6.4-8.2)
[2020-12-23 03:00] VITALS: BP 147/91
[2020-12-23] MEDS ORDERED: ULTRAM50 MG PO (03:20)
== END 2020-12-23 05:49 | disposition home or self-care (01) ==
LOC: D.ER 00:27
PROVIDERS: Family Medicine
DX: S00.83XA Contusion of other part of head, initial encounter (principal); S60.211A Contusion of right wrist, initial encounter; Z79.01 Long term (current) use of anticoagulants; I10 Essential (primary) hypertension; J44.9 Chronic obstructive pulmonary disease, unspecified; W19.XXXA Unspecified fall, initial encounter; Y93.9 Activity, unspecified; Y92.9 Unspecified place or not applicable

== ENCOUNTER 2021-03-16 07:33 | Emergency (ER) | payer MEDICARE ==
[~2021-03-16] VITALS: Ht 170.2 cm; Wt 89.5 kg
[~2021-03-16 07:33] MED LIST changes: +PREDNISONE20 MG PO; +ULTRAM50 MG PO
[2021-03-16 07:35] VITALS: BP 177/87; Ht 170.2 cm; Wt 89.5 kg
[2021-03-16 08:12] LABS: CALC OSMOLALITY 285 mosm/kg (275-300); CALCIUM 8.7 mg/dL (8.5-10.1); CARBON DIOXIDE 28.7 mmol/L (21.0-32.0); CHLORIDE - SERUM 106 mmol/L (98-107); CREATININE - SERUM 0.9 mg/dL (0.6-1.3); GLUCOSE 118 mg/dL (74-106); POTASSIUM - SERUM 3.7 mmol/L (3.5-5.1); SODIUM 141 mmol/L (136-145); UREA NITROGEN 24 mg/dL (7-18); eGFR NON AFRICAN AMERICAN 87 mL/min (90-120)
[2021-03-16 08:13] LABS: APTT 33.1 SECONDS (22.8-39.4); INR 1.11 (0.85-1.17); PROTIME 13.2 SECONDS (11.6-15.0)
[2021-03-16 08:16] LABS: BASOPHILS 1.1 % (0-2); EOSINOPHILS 7.2 % (0-7); HEMATOCRIT 38.1 % (42.0-54.0); HEMOGLOBIN 12.8 g/dL (13.5-17.5); LYMPHOCYTES 13.7 % (15-50); MCH 31.2 pg (26.0-34.0); MCHC 33.7 g/dL (31.0-37.0); MCV 92.7 fL (80.0-100.0); MEAN PLATELET VOLUME 10.2 fL (7.4-10.4); MONOCYTES 8.5 % (2-11); NEUTROPHILS 69.5 % (40-80); PLATELET COUNT 53 10x3/uL (130-400); RBC 4.11 10x6/uL (4.20-6.10); RDW 14.6 % (11.5-14.5); WBC 6.5 10x3/uL (4.8-10.8)
[2021-03-16 08:18] LABS: ALBUMIN 3.7 g/dL (3.4-5.0); ALKALINE PHOSPHATASE 96 U/L (30-120); ALT (SGPT) 22 U/L (10-68); BILIRUBIN - TOTAL 0.32 mg/dL (0.2-1.3); PROTEIN - SERUM 7.1 g/dL (6.4-8.2)
[2021-03-16 08:19] LABS: PLATELET ESTIMATE DECREASED
== END 2021-03-16 09:06 | disposition home or self-care (01) ==
LOC: D.ER 07:33
PROVIDERS: Family Medicine
DX: S71.111A Laceration without foreign body, right thigh, initial encounter (principal); Z79.01 Long term (current) use of anticoagulants; I10 Essential (primary) hypertension; J44.9 Chronic obstructive pulmonary disease, unspecified; X58.XXXA Exposure to other specified factors, initial encounter